=== PATIENT | female | born 1995 | race Caucasian/White ===

== ENCOUNTER 2017-10-19 14:24 | Emergency (ER) | payer BC, OTHER ==
[~2017-10-19] VITALS: Ht 160 cm; Wt 75.2 kg
[~2017-10-19 14:24] MED LIST: DIFL150T PO
[2017-10-19 14:32] VITALS: BP 134/82; PULSE 109; RESP 16; TEMP 100; O2SAT 98
[2017-10-19] MEDS ORDERED: SODIUM CHLOR 0.9% 1000 ML INJ 1,000 ML IV SCH (14:48)
[2017-10-19] MEDS ORDERED: birth control PO (14:54)
--- NOTE | 2017-10-19 14:54 | PD ---
HPI Chief Complaint: GI Complaint Time Seen by Provider: 14:40 Travel History International Travel<30 days: No Contact w/Intl Traveler<30days: No Traveled to known affect area: No History of Present Illness HPI 22yo F with no significant PMH presents to the ED with c/o upper abdominal pain for 3 days. Pain is bilateral upper abdomen and is sharp and comes about 10 minutes after eating. Feels like the pain radiates to the back. Had some nausea but no vomiting. [place] warm but no documented fever. Denies any chest pain, sob, dysuria, hematuria, vaginal discharge. Pt is on control but missed 2 days so had some vaginal spotting. PFSH Past Medical History Medical History: Denies Significant Hx Tetanus Vaccination: Unknown Influenza Vaccination: No ?: Not LMP: 2 weeks Past Surgical History Other Surgery: Yes (REMOVE CYST FROM NECK) Social History Alcohol Use: No Tobacco Use: No Substance Use: No Allergies-Medications (Allergen,Severity, Reaction): Uncoded Allergies: all cillins (Allergy, Intermediate, skin rash, 10/19/17) Reported Meds & Prescriptions Reported Meds & Active Scripts Active Pepcid (Famotidine) 20 Mg Tab 20 Mg PO BID 5 Days Reported [ control] 1 Tab PO DAILY Review of Systems Except as stated in HPI: all other systems reviewed are Neg Physical Exam Narrative GENERAL: 22yo F in mild distress. SKIN: Focused skin assessment warm/dry. HEAD: Atraumatic. Normocephalic. EYES: Pupils equal and round. No scleral icterus. No injection or drainage. CARDIOVASCULAR: Regular rate and rhythm. No murmur appreciated. RESPIRATORY: No accessory muscle use. Clear to auscultation. Breath sounds equal bilaterally. GASTROINTESTINAL: Abdomen soft, +TTP epigastric > RUQ. No rebound tenderness or guarding. MUSCULOSKELETAL: No obvious deformities. No clubbing. No cyanosis. No edema. NEUROLOGICAL: Awake and alert. No obvious cranial nerve deficits. Motor grossly within normal limits. Normal speech. PSYCHIATRIC: Appropriate mood and affect; insight and judgment normal. Data Data Last Documented VS Vital Signs Date Time Temp Pulse Resp B/P (MAP) Pulse Ox O2 Delivery O2 Flow Rate FiO2 10/19/17 16:33 90 16 115/65 (82) 95 Room Air 10/19/17 14:32 100.0 Orders Orders Basic Metabolic Panel (Bmp) (10/19/17 14:48) Complete Blood Count With Diff (10/19/17 14:48) Lipase (10/19/17 14:48) Urinalysis - C+S If Indicated (10/19/17 14:48) Ondansetron Inj (Zofran Inj) (10/19/17 15:00) Sodium Chlor 0.9% 1000 Ml Inj (Ns 1000 M (10/19/17 14:48) Famotidine Inj (Pepcid Inj) (10/19/17 15:00) Ed Urine Pregnancytest Poc (10/19/17 14:48) Hepatic Functional Panel (10/19/17 14:48) Us Abdomen Gallbladder (10/19/17 ) [id number] 325-50-40 Mg (Fioricet 3 (10/19/17 16:30) Ed Discharge Order (10/19/17 17:21) Labs Laboratory Tests Test 10/19/17 15:00 White Blood Count 13.6 TH/MM3 Red Blood Count 5.27 MIL/MM3 Hemoglobin 15.7 GM/DL Hematocrit 46.3 % Mean Corpuscular Volume 87.9 FL Mean Corpuscular Hemoglobin 29.7 PG Mean Corpuscular Hemoglobin Concent 33.8 % Red Cell Distribution Width 11.3 % Platelet Count 358 TH/MM3 Mean Platelet Volume 7.8 FL Neutrophils (%) (Auto) 87.8 % Lymphocytes (%) (Auto) 5.8 % Monocytes (%) (Auto) 4.6 % Eosinophils (%) (Auto) 0.2 % Basophils (%) (Auto) 1.6 % Neutrophils # (Auto) 12.0 TH/MM3 Lymphocytes # (Auto) 0.8 TH/MM3 Monocytes # (Auto) 0.6 TH/MM3 Eosinophils # (Auto) 0.0 TH/MM3 Basophils # (Auto) 0.2 TH/MM3 CBC Comment DIFF FINAL Differential Comment Urine Color YELLOW Urine Turbidity CLEAR Urine pH 6.5 Urine Specific [place] LESS/EQUAL 1.005 Urine Protein NEG mg/dL Urine Glucose (UA) NEG mg/dL Urine Ketones 15 mg/dL Urine Occult Blood SMALL Urine Nitrite NEG Urine Bilirubin NEG Urine Urobilinogen 0.2 MG/DL Urine Leukocyte Esterase NEG Urine RBC 0-3 /hpf Urine WBC 0-2 /hpf Urine Squamous Epithelial Cells 0-5 /hpf Microscopic Urinalysis Comment CULT NOT INDICATED Blood Urea Nitrogen 10 MG/DL Creatinine 0.78 MG/DL Random Glucose 90 MG/DL Total Protein 8.0 GM/DL Albumin 3.3 GM/DL Calcium Level 8.8 MG/DL Alkaline Phosphatase 62 U/L Aspartate Amino Transf (AST/SGOT) 24 U/L Alanine Aminotransferase (ALT/SGPT) 17 U/L Total Bilirubin 0.2 MG/DL Direct Bilirubin LESS THAN 0.1 MG/DL Sodium Level 136 MEQ/L Potassium Level 4.0 MEQ/L Chloride Level 102 MEQ/L Carbon Dioxide Level 24.7 MEQ/L Anion Gap 9 MEQ/L Estimat Glomerular Filtration Rate 92 ML/MIN Indirect Bilirubin 0.1 MG/DL Lipase 97 U/L [facility] Medical Decision Making Medical Screen Exam Complete: Yes Emergency Medical Condition: Yes Differential Diagnosis Gastritis vs. pancreatitis vs. cholecystitis vs. choledocholithiasis Narrative Course 22yo F with upper abdominal pain after eating for 3 days. Labs reviewed, mild leukocytosis at 13.6. H/H elevated at 15.7/46.3. Pt likely dehydrated. LFTs normal. Lipase normal. UA showed WBC 0-2. Urine negative. Pt given NS IVF, zofran and pepcid. Pt reevaluated at bedside and said abdominal pain has resolved. Pt is now requesting something for her headache. Said she has not drink coffee for 3 days and gets intermittent headaches from that. Pt does not want to drink coffee due to abdominal pain so fioricet given. No focal neurologic deficits. US showed no gallstones or biliary tract obstruction. Focal area of decreased echogenicity measuring 2cm in right lobe. On a nonemergent outpatient basis, an MRI of abdomen could be performed for further evaluation if clinically indicated. Pt reevaluated after fioricet and headache has resolved. Pt is to follow up with GI as outpatient. Diagnosis Primary Impression: Abdominal pain Qualified Codes: R10.13 - Epigastric pain Referrals: Bret Villa MD call for appointment Patient Instructions: General Instructions Departure Forms: Tests/Procedures Additional Instructions: Please follow up with hot billet shear operator. Return to the ED if symptoms worsen. Med/Other Pt SpecificInfo: Prescription(s) given Scripts Famotidine (Pepcid) 20 Mg Tab 20 MG PO BID for 5 Days, #10 TAB 0 Refills Prov: Sandy Leavitt DO 10/19/17 Disposition: 01 DISCHARGE HOME Condition: Stable Sandy Leavitt DO Oct 19, 2017 14:54
[2017-10-19] MEDS ORDERED: ONDANSETRON HCL 4 MG/2 ML VIAL IVP ONE (15:00)
[2017-10-19] MEDS ORDERED: FAMOTIDINE 20 MG/2 ML VIAL IV PUSH ONE (15:00)
[2017-10-19 15:27] LABS: BASOPHIL # 0.2 TH/MM3 (0-0.2); BASOPHIL % 1.6 % (0.0-2.0); BILIRUBIN, URINE NEG (NEG); BLOOD, URINE SMALL (NEG); CHLORIDE 102 MEQ/L (98-107); EOSINOPHIL % 0.2 % (0.0-4.0); GLUCOSE,URINE NEG (NEG); HEMATOCRIT 46.3 % (35.0-46.0); HEMOGLOBIN 15.7 GM/DL (11.6-15.3); KETONE, URINE 15 mg/dL (NEG); LYMPH % 5.8 % (9.0-44.0); LYMPHOCYTE # 0.8 TH/MM3 (1.0-4.8); MEAN CELL VOLUME 87.9 FL (80.0-100.0); MEAN CORPUSCULAR HEMOGLOBIN 29.7 PG (27.0-34.0); MEAN CORPUSCULAR HGB CONC 33.8 % (32.0-36.0); MEAN PLATELET VOLUME 7.8 FL (7.0-11.0); MONO % 4.6 % (0.0-8.0); MONOCYTE # 0.6 TH/MM3 (0-0.9); NEUT % 87.8 % (16.0-70.0); NITRITE,URINE NEG (NEG); PH, URINE 6.5 (5.0-8.5); PLATELET COUNT 358 TH/MM3 (150-450); RED BLOOD COUNT 5.27 MIL/MM3 (4.00-5.30); RED CELL DISTRIBUTION WIDTH 11.3 % (11.6-17.2); SODIUM (NA) 136 MEQ/L (136-145); URINE COLOR YELLOW (YELLW/STRAW); URINE LEUKOCYTE ESTERASE NEG (NEG); WHITE BLOOD COUNT 13.6 TH/MM3 (4.0-11.0)
[2017-10-19 15:30] LABS: CALCIUM 8.8 MG/DL (8.5-10.1)
[2017-10-19 15:31] LABS: ALBUMIN 3.3 GM/DL (3.4-5.0); BICARBONATE 24.7 MEQ/L (21.0-32.0); BLOOD UREA NITROGEN 10 MG/DL (7-18); GLUCOSE,RANDOM 90 MG/DL (74-106)
[2017-10-19 15:34] LABS: ALT (GPT) 17 U/L (10-53); AST (GOT) 24 U/L (15-37); CREATININE 0.78 MG/DL (0.50-1.00); GLOMERULAR FILTRATION RATE 92 ML/MIN (>89)
[2017-10-19 15:35] LABS: TOTAL BILIRUBIN ADULT 0.2 MG/DL (0.2-1.0)
[2017-10-19 15:37] LABS: ALKALINE PHOSPHATASE 62 U/L (45-117)
[2017-10-19 15:39] LABS: RBC, URINE 0-3 /hpf (0-3); SQUAMOUS EPITHELIAL CELL URINE 0-5 /hpf (0-5); WBC, URINE 0-2 /hpf (0-5)
--- NOTE | 2017-10-19 16:10 | RADRPT ---
EXAM DATE/TIME: 10/19/2017 15:15 [facility] COMPARISON: No previous studies available for comparison. INDICATIONS : Right upper quadrant pain. MEDICAL HISTORY : Right upper quadrant pain. SURGICAL HISTORY : Cyst removed from neck. ENCOUNTER: Initial ACUITY: 3 days PAIN SCORE: 4/10 LOCATION: Right upper quadrant MEASUREMENTS: LIVER: 14.8 cm length COMMON DUCT: 3 mm RIGHT KIDNEY: 8.1 x 4.8 x 5.1 cm FINDINGS: LIVER: There is increased echogenicity throughout the liver. There is a focal area of decreased echogenicity in the right lobe measuring 2.0 x 1.6 cm. No dilated biliary ducts are demonstrated. The portal syst em appears to be patent. COMMON DUCT: No intraluminal mass or stone visualized. GALLBLADDER: Contains no stones, demonstrates no wall thickening or pericholecystic fluid. There is some sludge i n the gallbladder. PANCREAS: The visualized portions are within normal limits. RIGHT KIDNEY: No evidence of hydronephrosis, stone, or mass. CONCLUSION: 1. No definite gallstones or biliary tract obstruction. 2. There is fatty infiltration of the liver. 3. Focal area decreased echogenicity measuring 2 cm in the right lobe. This could represent some foca l fatty sparing. On a nonemergent outpatient basis, an MRI of the abdomen could be performed for furt her evaluation if clinically indicated. Malik Merchant MD on October 19, 2017 at 16:07 Board Certified Radiologist. This report was verified electronically.
[2017-10-19 16:13] LABS: DIRECT BILIRUBIN ADULT LESS THAN 0.1 MG/DL (0.0-0.2); INDIRECT BILIRUBIN 0.1 MG/DL (0.0-0.8)
[2017-10-19] MEDS ORDERED: ACETAMIN 325 MG/BUTALBITAL 50 MG/CAFFEINE 40 MG TAB PO ONE (16:30)
[2017-10-19 16:33] VITALS: BP 115/65; PULSE 90; RESP 16; O2SAT 95
[2017-10-19 17:00] VITALS: RESP 16
[2017-10-19] MEDS ORDERED: FAMO1TAB37 PO (17:21)
== END 2017-10-19 17:50 | disposition home or self-care (01) ==
LOC: PHED 14:24
DX: R10.13 Epigastric pain (principal); R51 Headache; Z88.8 Allergy status to other drugs, medicaments and biological substances
CPT/HCPCS: 76705; 80048; 80076; 81001; 83690; 84703; 85025; 96361; 96374; 96375; 99284; J2405; J7030